=== PATIENT | male | born 1960 | race African-American/Black ===

== ENCOUNTER → 2024-03-19 06:33 | Outpatient (REF) | payer BC, SELFPAY | LOC: MRI 3T 06:33 | PROVIDERS: ATTENDING PHYSICIAN Orthopaedic Surgery; FAMILY PHYSICIAN Family Medicine | DX: M25.552 Pain in left hip (principal) | CPT/HCPCS: 73721 ==

== ENCOUNTER 2024-12-25 10:45 | Emergency (ER) | payer BC, SELFPAY ==
[2024-12-25 10:57] VITALS: BP 167/80
--- NOTE | 2024-12-25 13:34 | ED.GENMED ---
History of Present Illness
General
Chief Complaint: Chest Pain
Time Seen by Provider: 12/25/24 13:34
History of Present Illness
History of Present Illness:
FOCUSED PAST MEDICAL HISTORY
- The patient has a history of high blood pressure and diabetes
REVIEW OF OLD RECORDS
- I reviewed records, the patient had outpatient EMG that showed severe right median mononeuropathy at the wrist (carpal tunnel syndrome)�this was ordered by Dr. Srinivasan in 2018. No recent cardiac records.
CHIEF COMPLAINT(S)
Shortness of breath.
HISTORY OF PRESENT ILLNESS
The patient is a 64-year-old male who presents with a primary complaint of shortness of breath, notably occurring over the past two weeks. The patient reports experiencing significant shortness of breath during walking, which requires him to stop
until he can breathe more easily. While at rest, he describes a sensation of chest congestion on the left side. He denies chest pain but states that his breathing discomfort is similar to bronchitis he had ten years ago. The patient additionally
mentions occasional swelling, particularly after prolonged sitting, but has not experienced significant issues with the heart or lungs in the past.
PAST MEDICAL AND SURGICAL HISTORY
The patient reports a history of diabetes and some swelling after surgical interventions, though specific surgeries were not detailed.
PHYSICAL EXAM
- General: Well appearing in no distress, appears very comfortable
- HEENT: Moist oral mucosa
- Cardiovascular: No murmurs, normal heart rate, regular rhythm, No chest wall tenderness
- Pulmonary: No respiratory distress, breath sounds are clear and equal
- Abdomen: Soft with no peritoneal signs, no tenderness
- Neurologic: Excellent strength all extremities, no coordination deficits
- Psychiatric: Appropriate mental status, normal insight and judgement
- Extremities: Nontender, trace bilateral lower extremity edema, moves all extremities equally, increased swelling and surgical scar noted to the medial aspect of the left ankle
- Skin: No rash, no lesions
CHRONIC MEDICAL CONDITIONS SIGNIFICANTLY AFFECTING CARE
Diabetes.
High blood pressure
PLAN
- Order cardiac blood work to assess for evidence of acute coronary syndrome or heart failure. Will also check D-dimer.
- Conduct a chest X-ray to evaluate for any pulmonary or cardiac abnormalities.
- Initiate a breathing treatment in case of mucous presence not detected on examination.
DIFFERENTIAL DIAGNOSIS
The Differential Diagnosis includes, in no particular order and is not limited to:
1. Congestive heart failure
2. Chronic obstructive pulmonary disease (COPD)
3. Asthma
4. Pulmonary embolism
5. Coronary artery disease
6. Bronchitis
7. Allergic reaction or underlying asthma
8. Anxiety-related hyperventilation
9. Interstitial lung disease
10. Deconditioning or poor cardiovascular fitness
RADIOLOGY
- Chest x-ray obtained which is normal
EKG
- Sinus 83, left axis deviation, poor R wave progression, no significant change from 02/14/2022
LABS
- CBC and chemistries unremarkable, troponin 0.016, BNP 59, D-dimer is 0.33
UPDATE
-SUMMARY OF ENCOUNTER
The patient, a 64-year-old male, presented to the emergency department with complaints of shortness of breath, notably during exertion. Upon evaluation, no wheezing was detected, and the patients oxygen levels were normal. The tests performed
included blood work and a chest X-ray. The chest X-ray appeared normal with clear lungs, and blood work showed no evidence of a heart attack, congestive heart failure, or pulmonary embolism. Despite these findings, the underlying cause of the
symptoms was not definitively identified in the emergency department. Given the exertional nature of the symptoms and the absence of chest pain, the possibility of coronary artery disease was considered. It was recommended that the patient see a
websphere consultant for further evaluation.
PLAN
Plan to refer the patient to a websphere consultant for further evaluation to investigate potential coronary artery disease, given the exertional nature of symptoms and to rule out significant coronary blockages.
INDEPENDENT REVIEW OF LABS AND INTERPRETATION OF TESTS
My independent review of blood tests indicates no signs of a heart attack, congestive heart failure, or pulmonary embolism.
My independent interpretation of the chest X-ray indicates clear lungs with no acute abnormalities.
PATIENT EDUCATION AND COUNSELING
The patient was advised about the lack of alarming findings in the emergency evaluation and the importance of follow-up with a websphere consultant to assess for possible coronary artery disease, given the exertional symptoms. It was explained that while
the immediate tests did not reveal acute issues, further exploration by a specialist might be necessary.
FOLLOW-UP INSTRUCTIONS
The patient was advised to schedule an appointment with a websphere consultant as soon as possible. A referral will facilitate quicker access to the websphere consultant.
MEDICAL DECISION MAKING
-Complexity of Data Reviewed: Chronic conditions affecting care include diabetes. Differential diagnosis considered: congestive heart failure, chronic obstructive pulmonary disease (COPD), asthma, pulmonary embolism, coronary artery disease,
bronchitis, allergic reaction, anxiety-related hyperventilation, interstitial lung disease, and deconditioning.
-Data:
Category 1
Tests ordered and independently interpreted: blood work and chest X-ray.
Category 2
None mentioned.
Category 3
Discussion of management with cardiology was recommended for further evaluation.
-Risk:
Consideration of Admission/Observation: Escalation of care including admission/observation was considered given the complexity and risk of the patients presenting complaint, exam findings, and/or their underlying comorbidities. However, ultimately I
feel the patient is safe for outpatient management with close follow-up. Reasoning: Work-up reassuring, does not reveal any acute life/organ threatening processes, patients symptoms well controlled upon reevaluation, reexamination is reassuring,
vitals are stable, patient agreeable with discharge, reliable for follow-up.
DIAGNOSIS
Shortness of breath, R06.02
Concern for coronary artery disease, I25.10
Past History
Past History
ED Past Medical History: HTN and Other (Rotator cuff tendinitis, previous left ankle fracture)
ED Past Surgical History: Orthopedic (Rotator cuff repair, left ankle surgery, oral surgery)
Social History
Tobacco: Non-smoker
Alcohol: None
Personal:
Living: with family
Employment: Employed
Phy Exam
Physical Exam
Physical Exam:
See HPI
Scores
Heart Score for Chest Pain Patients
STEMI patient?: Not applicable
Course
Orders/Labs/Results
Orders:
Orders
12/25/24 10:56
EKG [Electrocardiogram (*1)] Urgent
Reason for Study: Chest Pain
EKG- Treatment ONCE
12/25/24 13:47
Ipratropium/Albuterol Sulfate [Duoneb] 3 ml INH R NOW STA
CR Chest - 2 Views Urgent
Comment:
Reason For Exam: Left pain
12/25/24 14:08
Complete Blood Count/With Diff Urgent
Comprehensive Metabolic Panel Urgent
D-Dimer Urgent
Magnesium Urgent
NT-proBNP Urgent
Troponin I Urgent
Abnormal Lab Results
12/25/24
14:08
MCH 31.8 H pg
(27.0-31.0)
MPV 12.0 H fL
(7.4-10.4)
AST 16 L U/L
(17-59)
Total Protein 6.2 L g/dl
(6.3-8.2)
12/25/24 14:08
12/25/24 14:08
Vital Signs
Initial and Last Documented VS:
Initial Vital Signs
Temp Pulse Resp BP Pulse Ox
36.9 C 87 18 167/80 96
12/25/24 10:57 12/25/24 10:57 12/25/24 10:57 12/25/24 10:57 12/25/24 10:57
Last Documented Vital Signs
Temp Pulse Resp BP Pulse Ox
37.0 C 82 16 156/93 98
12/25/24 14:12 12/25/24 14:12 12/25/24 14:12 12/25/24 14:12 12/25/24 14:12
*Pulse Oximetry
SaO2: 96
Oxygen Mode of Delivery: Room air
Patient hypoxic: no
*Critical Care Note
Total Time (30-74mins, 75-104mins- exclusive of procedures): Not Applicable
ED Attending Note
-
Portions of this chart may have been created with voice recognition software.� Occasional wrong word or��sound alike� substitutions may have occurred due to the inherent limitations of voice recognition software.
Discharge Plan
Departure
Patient Disposition: Home (Routine Discharge)
Date of Disposition: 12/25/24
Time of Disposition: 15:43
Patient with high blood pressure during this ER visit?: Yes
Discharge Problem:
Exertional shortness of breath
Instructions: Chest Pain CBC Follow Up
Prescriptions:
No Action
ibuprofen 800 MG tablet
800 mg PO Q6HPRN PRN (Reason: pain with food) Qty: 30 0RF
naproxen sodium [Aleve] 220 MG tablet
220 mg PO PRN PRN (Reason: pain)
Bp Pill
1 tab PO DAILY
hydrochlorothiazide 12.5 MG capsule
12.5 mg PO DAILY
multivitamin [Multi-Day] 1 EACH tablet
1 ea PO DAILY
zolpidem 5 MG tablet
2.5 mg PO HSPRN PRN (Reason: sleep)
pantoprazole 40 MG tablet,delayed release (DR/EC)
40 mg PO DAILY Qty: 10 0RF
Referrals:
Neo Foreman MD [Family Provider, Family Practice]
Oli Mallory MD [Active, Cardiology]
Activity Restrictions/Additional Instructions:
Since you do have shortness of breath that worsens with exertion, I recommend you follow-up with websphere consultant such as Dr. Mallory. Blood work showed no sign of heart attack, no blood clot in the lung, and no sign of congestive heart failure.
Your chest x-ray was clear.
Interventions
Interventions:
*Risk Screen - Suicide Last Done: 12/25/24 10:57
*General Assessment Last Done: 12/25/24 14:12
*Neglect/Abuse Screening Last Done: 12/25/24 10:57
*ED- Fall Risk Assessment Last Done: 12/25/24 14:12
*ED COVID-19 Vaccine History Last Done: 12/25/24 10:57
ED- Cardiac Assessment Last Done: 12/25/24 14:12
Discharge Date and Time
Print Language: BULGARIAN
[2024-12-25 14:00] VITALS: BP 156/93
[2024-12-25 14:09] VITALS: BMI 33.9
[2024-12-25 14:12] VITALS: BP 156/93
[2024-12-25 14:21] LABS: Hematocrit 44.2 % (39.0-52.0); Hemoglobin 15.5 g/dL (13.0-18.0); Mean Corp Hgb Conc. 35.1 g/dL (33.0-37.0); Mean Corpuscular Volume 90.6 fL (80.0-94.0); Nucleated Red Blood Cells % 0 % (-); Platelet Count 181 10^3/uL (130-400); Red Cell Dist. Width 14.1 % (11.5-14.5)
[2024-12-25 14:34] LABS: D-Dimer 0.33 ug/mlFEU (0.00-0.50)
[2024-12-25 14:38] LABS: ALT (SGPT) 20 U/L (0-50); AST (SGOT) 16 U/L (17-59); Albumin 4.3 g/dl (3.5-5.0); Alkaline Phosphatase 51 U/L (38-126); Blood Urea Nitrogen 16 mg/dl (9-20); Calcium 9.7 mg/dl (8.4-10.2); Carbon Dioxide 28 mmol/L (22-30); Chloride 106 mmol/L (98-107); Estimated Creatinine Clearance > 125 ml/min; Glucose 93 mg/dl (70-99); Magnesium 2.2 mg/dl (1.6-2.3); Potassium 4.3 mmol/L (3.5-5.1); Sodium 138 mmol/L (135-145); Total Protein 6.2 g/dl (6.3-8.2); eGFR > 60.00
[2024-12-25] MEDS: DUONEB 3 ML INH (14:38)
[2024-12-25 14:47] LABS: Troponin I 0.016 ng/ml
[2024-12-25 15:31] VITALS: BP 152/72
[2024-12-25 16:00] VITALS: BP 152/74
== END 2024-12-25 16:23 | disposition home or self-care (01) ==
LOC: EMR 10:45
PROVIDERS: EMERGENCY PHYSICIAN Emergency Medicine; FAMILY PHYSICIAN Family Medicine
DX: R06.02 Shortness of breath (principal); I10 Essential (primary) hypertension; E11.9 Type 2 diabetes mellitus without complications
CPT/HCPCS: 99285; 94640; 71046; 80053; 83735; 83880; 84484; 85025; 85379; 93005

== ENCOUNTER → 2025-03-12 14:32 | Outpatient (REF) | payer BC, SELFPAY | LOC: RAD 14:32 | PROVIDERS: ATTENDING PHYSICIAN Family Medicine; FAMILY PHYSICIAN Family Medicine | DX: M54.50 Low back pain, unspecified (principal); R10.32 Left lower quadrant pain; S20.222A Contusion of left back wall of thorax, initial encounter | CPT/HCPCS: 74177; Q9967 ==

== ENCOUNTER → 2025-04-16 13:19 | Outpatient (REF) | payer BC, SELFPAY ==
[2025-04-16 14:17] LABS: Hematocrit 42.3 % (39.0-52.0); Hemoglobin 14.9 g/dL (13.0-18.0); Mean Corp Hgb Conc. 35.2 g/dL (33.0-37.0); Mean Corpuscular Volume 89.6 fL (80.0-94.0); Nucleated Red Blood Cells % 0 % (-); Platelet Count 147 10^3/uL (130-400); Red Cell Dist. Width 13.5 % (11.5-14.5)
[2025-04-16 15:25] LABS: ALT (SGPT) 16 U/L (0-50); AST (SGOT) 18 U/L (17-59); Albumin 4.2 g/dl (3.5-5.0); Alkaline Phosphatase 61 U/L (38-126); Blood Urea Nitrogen 14 mg/dl (9-20); Calcium 9.5 mg/dl (8.4-10.2); Carbon Dioxide 25 mmol/L (22-30); Chloride 102 mmol/L (98-107); Glucose 109 mg/dl (70-99); Potassium 4.2 mmol/L (3.5-5.1); Sodium 135 mmol/L (135-145); Total Protein 6.2 g/dl (6.3-8.2); eGFR > 60.00
== END ==
LOC: REG 13:19
PROVIDERS: ATTENDING PHYSICIAN Internal Medicine Cardiovascular Disease; FAMILY PHYSICIAN Family Medicine
DX: R07.89 Other chest pain (principal); I20.0 Unstable angina; E11.9 Type 2 diabetes mellitus without complications; I10 Essential (primary) hypertension
CPT/HCPCS: 36415; 80053; 85025

== ENCOUNTER 2025-04-21 07:08 | Day surgery (SDC) | payer BC, SELFPAY ==
[2025-04-21] VITALS (12 sets, daily range): BP systolic 119–174; BP diastolic 63–97; BMI 37.3
[2025-04-21] MEDS: NSS 363 ML IV (08:39)
[2025-04-21 08:50] LABS: Glucose - Point of Care 140 mg/dl (70-99)
--- NOTE | 2025-04-21 11:04 | ITS.CL.CATH ---
[facility] - Catheterization
Cardiac Catheterization
Procedure Report:
CARDIAC CATHETERIZATION REPORT
Date of Procedure: 04/21/2025
Referring: Chepe Alegria M.D.
Indication: Multiple CAD risk factors, progressive shortness of breath and chest pressure with exertion.
PROCEDURE:
1. Right heart catheterization.
2. Coronary angiography.
3. Left heart catheterization
4. Left-ventricular Aggrey.
A total of 18 minutes of procedural/moderate sedation was utilized. An independent director medical affairs was present to assist with and help manage the patient's level of consciousness and physiologic status.
ACCESS:
1. 6 Kosovan right radial artery using modified Seldinger technique.
2. 5 Kosovan right antecubital vein using a previously placed IV.
CATHETERS:
1. 5 Kosovan balloon wedge.
2. 5 Kosovan JR4.
3. 5 Kosovan JL 3.5.
4. 5 Kosovan angled pigtail.
HEMODYNAMIC DATA
Weight (kg): 121.1
AO (s/d/x, mmHg): 142/82/110
LV (s/x, mmHg): 146/20 (A wave to 29 mmHg)
PCWP (a/v/x, mmHg): /
PA (s/d/x, mmHg): 38//27
RV (s/x, mmHg): 40/13
RA (a/v/x, mmHg): 17/
SVC SvO2 (%): 75.9
IVC SvO2 (%): Not obtained.
RA SvO2 (%): Not obtained.
RV SvO2 (%): Not obtained.
PA SvO2 (%): 77.1
SaO2 (%): 93.7
Hbg (g/dL): 14.7
YOAV
CO (L/min): 8.97
CI (L/min/m2): 3.77
Thermodilution
CO (L/min): Not performed.
CI (L/min/m2): Not performed.
TPG (mmHg): 7
PVR (Blancas Units): 0.70
SVR (dynes*seconds*cm^-5): 865
AVO2 Diff (Volume %): 3.32
Cardiac Power Output (velazquez): 2.2 (MAP * CO)/451 (normal 0.5 - 0.7; 0.4 - 0.6 in the elderly)
Cardiac Power Index (velazquez/m2): 0.92 (MAP * CI)/451
Grey: 1.3 (PAs-PAd)/RA
AV gradient (x, mmHg): None.
AV area (cm2): Normal.
MV gradient (x, mmHg): Not obtained.
MV area (cm2): Not obtained.
LEFT VENTRICULOGRAPHY: Normal size left ventricle with normal systolic function and no regional wall motion abnormalities. Left ventricular ejection fraction estimated at 65%. There is no mitral valve regurgitation. There is no aortic valve
insufficiency. The aortic root, ascending aorta and visualized ascending thoracic aorta appear normal.
AORTOGRAPHY: Special not performed.
CORONARY ANGIOGRAPHY
Dominance: Right.
Left Main: Short, bifurcating vessel. There is no coronary artery disease.
LAD: Large size vessel giving rise to 2 significant diagonals before wrapping around the apex and supplying the distal inferior wall. There is no coronary artery disease.
Ramus: Congenitally absent.
Circumflex: Large size, nondominant vessel giving rise to 1 large obtuse marginal. There is no coronary artery disease.
RCA: Normal size, dominant vessel. There is no coronary artery disease.
INTERVENTIONS
None.
Closure Device: Vascular band for the right radial artery, manual pressure for the right antecubital vein.
Radiation dose (mGy): 412
DAP (cm2.Gy): 24.1
Fluoroscopy time (minutes): 4.2
CONCLUSIONS:
1. Right dominant circulation with no coronary artery disease.
2. Normal left ventricular size and systolic function. Left ventricular ejection fraction estimated at 65%.
3. Moderately elevated filling pressures (LVEDP = 20 mmHg, PCWP = 20 mmHg at 121.1 kg) with evidence of diastolic dysfunction (A wave to 29 mmHg).
4. Supraphysiologic cardiac performance (cardiac index = 3.77 L/min/m�, AVO2 difference = 3.32 volume%, cardiac power output = 2.2 W, Grey 1.3).
5. Mild postcapillary pulmonary hypertension (mean PA = 27 mmHg, PCWP = 20 mmHg, cardiac output = 8.97 L/min, PVR = 0.70 Blancas units).
RECOMMENDATIONS:
1. Expectant management after cardiac catheterization via right radial/antecubital approach.
2. Limited weight bearing on the right wrist for one week.
3. Start furosemide 40 mg p.o. daily for moderately elevated filling pressures. BMP in 1 week to monitor renal function and potassium levels.
4. Continue GDMT as hemodynamics with tolerated including metoprolol, empagliflozin and valsartan.
5. Outpatient echocardiogram.
6. Stable for outpatient follow-up.
Copy to: Chepe Alegria M.D., Neo Foreman M.D.
Rafa Charles DO, FACC, FACP
[2025-04-21 11:34] LABS: Glucose - Point of Care 156 mg/dl (70-99)
[2025-04-21] MEDS: NORCO 5/325 1 TABLET PO (11:42)
[2025-04-21] MEDS: LASIX 40 MG IV (13:42)
== END 2025-04-21 13:57 | disposition home or self-care (01) ==
LOC: CATH 07:08
PROVIDERS: ATTENDING PHYSICIAN Internal Medicine Cardiovascular Disease; FAMILY PHYSICIAN Family Medicine; OTHER PHYSICIAN Internal Medicine Cardiovascular Disease
DX: R07.89 Other chest pain (principal); R06.02 Shortness of breath; I25.10 Atherosclerotic heart disease of native coronary artery without angina pectoris; I27.20 Pulmonary hypertension, unspecified; E11.9 Type 2 diabetes mellitus without complications; I10 Essential (primary) hypertension; E78.2 Mixed hyperlipidemia; R60.0 Localized edema; Z79.899 Other long term (current) drug therapy; Z79.84 Long term (current) use of oral hypoglycemic drugs
CPT/HCPCS: 99152; 82962; 93458; 93460; C1769; C1894; Q9967

== ENCOUNTER → 2025-04-27 07:10 | Outpatient (REF) | payer BC, SELFPAY | LOC: MRI 07:10 | PROVIDERS: ATTENDING PHYSICIAN Anesthesiology Pain Medicine; FAMILY PHYSICIAN Family Medicine | DX: M54.17 Radiculopathy, lumbosacral region (principal) | CPT/HCPCS: 72148 ==